=== PATIENT | female | born 1960 | race Caucasian/White ===

== ENCOUNTER 2024-12-13 12:10 | Emergency (ER) | payer MEDICARE, MEDICAID ==
[~2024-12-13] VITALS: Ht 170.2 cm; Wt 103.2 kg
[~2024-12-13 12:10] MED LIST: AMLO5TAB PO; ATOR40TA PO; BACL10TA2 PO; CALC-1215 PO; CYCL-1 PO; DIVA500T9 PO; FLUO-103 PO; FURO40TA4 PO; GLIM1TAB57 PO; HYDR-3972 PO; INSU100V12 SQ; LEVO125T PO; LORA0.5T PO; LOSA100T58 PO; METF500T PO; MILN50TA PO; ONDA4TAB9 SL; OXYB5TAB21 PO; POTA-188 PO; PRIM250T8 PO
[2024-12-13] MEDS: CefTRIAXone 1000mg IM Kit (w/lidocaine diluent) IM ONE (13:30)
[2024-12-13] MEDS ORDERED: CLIN300C63 PO (13:51)
[2024-12-13 14:03] VITALS: BP 128/80; PULSE 68; RESP 16; TEMP 98.7; O2SAT 98
== END 2024-12-13 14:05 | disposition home or self-care (01) ==
LOC: ER 12:10
DX: L02.811 Cutaneous abscess of head [any part, except face] (principal); Z88.0 Allergy status to penicillin
CPT/HCPCS: 96372; 99283; J0696

== ENCOUNTER 2024-12-15 08:01 | Emergency (ER) | payer MEDICARE, MEDICAID ==
[~2024-12-15] VITALS: Ht 170.2 cm; Wt 104.5 kg
[~2024-12-15 08:01] MED LIST changes: +CLIN300C63 PO
[2024-12-15 08:17] VITALS: TEMP 98
[2024-12-15 08:59] VITALS: BP 142/75; PULSE 70; RESP 14; O2SAT 96
== END 2024-12-15 09:08 | disposition home or self-care (01) ==
LOC: ER 08:02
DX: L72.9 Follicular cyst of the skin and subcutaneous tissue, unspecified (principal); Z88.0 Allergy status to penicillin; Z79.899 Other long term (current) drug therapy
CPT/HCPCS: 99281

== ENCOUNTER 2025-04-22 08:59 | Emergency (ER) | payer MEDICARE, MEDICAID ==
[~2025-04-22] VITALS: Ht 170.2 cm; Wt 111.4 kg
[~2025-04-22 08:59] MED LIST changes: -CLIN300C63 PO
--- NOTE | 2025-04-22 09:40 | RADIOLOGY REPORT ---
CLINICAL INDICATION: KNEE PAIN TECHNIQUE: Left DI KNEE, COMP 4 VW MIN Comparison: DI KNEE, COMP 4 VW MIN on DOS: 02/22/24, DI KNEE, COMP 4 VW MIN on DOS: 02/22/24 FINDINGS/IMPRESSION: : There is no evidence of acute fracture or dislocation. Soft tissues are unremarkable. Left knee arthroplasty.
--- NOTE | 2025-04-22 10:59 | Physician Documentation ---
History of Present Illness ~ Chief Complaint: Knee Pain Stated Complaint: KNEE PAIN Time Seen by MD: 09:32 OK to notify your PCP?: Yes Primary Medical Doctor: Dr forte Source: patient Mode of Arrival: POV Exam Limitations: no limitations HPI 65-year-old female presents with left knee pain after she tripped on a hose and fell down onto her kneecap. She does have a full knee replacement on that side but is worried that she may have fractured something else. She does have a slight bruise to the portion right below the knee and some tenderness to palpation. She has full range motion of this knee. She says it is painful to walk on it and she has been using a cane. She does take naproxen at home for chronic back pain already and she took a tramadol last night as well. Tetanus witin 5 years: Yes (2021) Medication Reconciliation Allergies: Coded Allergies: Penicillins (Verified Allergy, Unknown, RASH, 04/22/25) Scheduled Amlodipine Besylate (Amlodipine Besylate), 2 TABLET PO DAILY, (Reported) Atorvastatin Calcium* (Lipitor*), 1 TABLET PO HS, (Reported) Calcium Carbonate/Vitamin D3 (Calcium + D 600 Mg Tablet), 1 EACH PO DAILY, (Reported) Divalproex Sodium (Divalproex Sodium ER), 3 TABLET PO BID, (Reported) Fluoxetine Hcl (Fluoxetine Hcl), 50 MG PO DAILY, (Reported) Glimepiride* (Amaryl*), 2 MG PO DAILY, (Reported) Insulin Detemir (Levemir), 10 UNIT SQ DAILY, (Reported) Levothyroxine Sodium (Synthroid), 150 MG PO DAILY, (Reported) Losartan Potassium (Losartan Potassium), 1 TABLET PO DAILY, (Reported) Metformin Hcl* (Glucophage*), 1 TABLET PO BID, (Reported) Milnacipran Hcl (Savella), 1 TABLET PO BID, (Reported) Oxybutynin Chloride (Oxybutynin Chloride), 1 TABLET PO BID, (Reported) Primidone (MYSOLINE tablet), 250 MG PO DAILY, (Reported) Scheduled PRN Baclofen (Baclofen), 1 TAB PO TID PRN for muscle spasms, (Reported) Cyclobenzaprine* (Cyclobenzaprine*), 1 TABLET PO Q12H PRN for muscle spasms, (Reported) Furosemide 40 MG (Lasix), 1 TAB PO DAILY PRN for ANKLE SWELLING, (Reported) Hydrocodone Bit/Acetaminophen (Hydrocodon-Acetaminophn 10-325 tablet), 1 EACH PO Q6H PRN for moderate or severe pain, (Reported) Lorazepam* (Ativan*), 1 MG PO TID PRN for for anxiety/agitation, (Reported) Ondansetron* (Zofran Odt*), 2 TABLET SL Q6H PRN for nausea/vomiting, (Reported) Potassium Chloride* (Klor-Con*), 20 MG PO DAILY PRN for TAKEN WITH FUROSEMIDE, (Reported) Review of Systems All Other Systems at this time: Reviewed and Negative Physical Exam Vital Signs: RN Vital Signs have been reviewed: Yes, Temperature: 98.0, Source: Temporal, Heart Rate: 76, Respiratory Rate: 18, BP: 140/85, Pulse Oximetry: 99, Weight: 111.360 Oxygen Flow Rate: 0 Pulse Oximetry Reflects: adequate oxygenation Physical Exam General: Alert, no distress. HEENT: No injection, moist mucous membranes. Neck: Full range of motion. Respiratory: No respiratory distress, equal chest rise and fall. Chest: No accessory muscle use. Cardiovascular: Regular rate and rhythm. Gastrointestinal: Nondistended. Extremities: Normal range of motion, no deformity of left knee. Small bruise to distal portion of left knee, slight tenderness to palpation of bruise. Neurologic: Oriented x4. Psychiatric: Normal mood and affect. Skin: Normal color, warm and dry. Progress Results/Orders Reviewed/noted all lab results: Yes Results/Orders Vital Signs 04/22/25 09:09 Temp 98.0 Pulse 76 Resp 18 B/P (MAP) 140/85 Pulse Ox 99 O2 Flow Rate 0 EKG/XRAY/CT/US/VASC/MRI Bone/Soft Tissue X-Ray (Ext.) : Additional Comment Left knee X-ray as interpreted by me; no joint effusion, no acute fracture, no soft tissue swelling, no dislocation, or foreign body. Left knee arthroplasty. Medical Decision Making Additional info obtained from: old records Findings 65-year-old female presents with left knee pain after falling on it. Her x-ray is negative for an acute fracture. She does have full range motion of this knee in a little tenderness to palpation of a small bruise [id number]. She is already taking naproxen and she has tramadol at home. I did prescribe some diclofenac gel that which she can put directly to the site 3 times a day. She states she is unable to use crutches she would be unstable on her feet so a knee immobilizer is not ideal. We applied Fabrice wrap to the knee to help provide some compression as well as some stability and she can use her cane to walk at home. We discussed that she may need further imaging if this continues to be a problem as the X ray does not show the tendons and ligaments the hold the knee in place. I gave her return instructions as well as follow up instructions. Knee Diff Dx:Considerations: Include: Fracture-femur, Fracture-fibula, Fracture -patella, Fracture-tibia, Gout, Laceration, Neurovascular injury, Rheumatoid arthritis, Sprain Departure Disposition: 01 HOME / SELF CARE / HOMELESS Impression: Primary Impression: Knee pain Condition: Stable Discharge Instructions: Acute Knee Pain, Adult Additional Instructions: Take your naproxen at home. Keep knee elevated. You can use ice packs for 20 m inutes on 20 minutes off for the 1st 48 hours after injury then alternate ice and heat. We have applied an Fabrice wrap to help provide a little extra support. Follow up with the primary care provider within the next week and return back here for any new or worsening symptoms. Referrals: NO PRIMARY CARE PROVIDER (PCP) Prescriptions Diclofenac Sodium (Voltaren Arthritis Pain) 1 % Gel..gram. 1 APPLIC TOP TID for 10 Days, #1 EACH Prov: DAVID MORILLO 04/22/25 Education Educated: Patient Educated regarding: diagnosis, treatment, prognosis, need for follow up Additional Comment Medical Screen Exam This patient recieved a medical screening examination. After reviewing the individual's medical complaints with presenting symptoms and performing an appr opriate physical examination, it was determined that no immediate life- threatening emergency medical condition is present. This individual is also not a women having contractions. Signature Scribe Signature: . Attestation: Scribed for David Morillo by David Rogers NP . 04/22/25 11:05 Parts of this note were created using [employer] voice recognition software program. While efforts were made to correct any mistakes made by this voice recognition software program, nonsensical phrases may remain in this note. In addition, there may be errors and syntax, grammar, content and spelling. DAVID MORILLO [facility] Apr 22, 2025 10:59
[2025-04-22] MEDS ORDERED: DICL20GE TOP (11:03)
[2025-04-22 11:12] VITALS: BP 147/74; PULSE 78; RESP 16; TEMP 98; O2SAT 99
== END 2025-04-22 11:13 | disposition home or self-care (01) ==
LOC: ER 09:01
DX: M25.562 Pain in left knee (principal); Z88.0 Allergy status to penicillin; Z79.899 Other long term (current) drug therapy; Z79.4 Long term (current) use of insulin
CPT/HCPCS: 73564; 99284; A6449

== ENCOUNTER 2025-05-15 14:33 | Outpatient (CLI) | payer MEDICARE, MEDICAID ==
[~2025-05-15 14:33] MED LIST changes: +DICL20GE TOP
--- NOTE | 2025-05-15 15:26 | RADIOLOGY REPORT ---
EXAM: DI KNEE 3 VWS CLINICAL INDICATION: RIGHT KNEE PAIN TECHNIQUE: DI KNEE 3 VWS Comparison: DI KNEE, COMP 4 VW MIN on DOS: 04/22/25, DI KNEE, COMP 4 VW MIN on DOS: 02/22/24, DI KNEE, CO MP 4 VW MIN on DOS: 02/22/24 FINDINGS/IMPRESSION: There is no evidence of acute fracture or dislocation. Moderate right knee osteoarthritis The alignment is anatomical. There is no radiopaque foreign body.
== END 2025-05-15 23:59 | disposition home or self-care (01) ==
LOC: RAD 14:33
PROVIDERS: ATTEND Family Medicine
DX: M25.561 Pain in right knee (principal)
CPT/HCPCS: 73562

== ENCOUNTER 2025-08-31 12:06 | Emergency (ER) | payer MEDICARE, MEDICAID ==
[~2025-08-31] VITALS: Ht 170.2 cm; Wt 115.3 kg
[2025-08-31 12:18] VITALS: BP 158/88; PULSE 70; TEMP 97.4; O2SAT 96
--- NOTE | 2025-08-31 13:02 | RADIOLOGY REPORT ---
INDICATION: Fall, pain TECHNIQUE: 3 views of the lumbar spine were obtained. COMPARISON: None FINDINGS: There are no acute fractures or subluxations. Multilevel degenerative changes of the spine. IMPRESSION: No acute fracture or subluxation.
--- NOTE | 2025-08-31 14:50 | Physician Documentation ---
History of Present Illness ~ Chief Complaint: Back Pain Stated Complaint: BACK PAIN Time Seen by MD: 13:21 Primary Medical Doctor: Dr jann ZAYAS Patient is a very pleasant 65-year-old female that presents to the emergency department for evaluation of low back pain sustained approximately 10 days ago after she suffered a mechanical ground level fall. Patient reports that she follow up with the primary care provider they told her to return to the office for re-evaluation in 10 days if her pain was persisting. Patient reports that her pain has been progressively worse and that it is radiating down her left buttock at this time. Patient reports he has a history of sciatica and lumbosacral strain but that this feels slightly worse than her previous episo kane. Patient denies any incontinence of bowel or bladder any perineal numbness any numbness or tingling in her lower extremities or numbness and tingling in her upper extremities. Patient reports that she took Tylenol and ibuprofen this morning but has not taken anything since that time. Patient denies any other symptoms at this time. Medication Reconciliation Allergies: Coded Allergies: Penicillins (Verified Allergy, Unknown, RASH, 08/31/25) Scheduled Amlodipine Besylate (Amlodipine Besylate), 2 TABLET PO DAILY, (Reported) Atorvastatin Calcium* (Lipitor*), 1 TABLET PO HS, (Reported) Calcium Carbonate/Vitamin D3 (Calcium + D 600 Mg Tablet), 1 EACH PO DAILY, (Reported) Diclofenac Sodium (Voltaren Arthritis Pain), 1 APPLIC TOP TID Divalproex Sodium (Divalproex Sodium ER), 3 TABLET PO BID, (Reported) Fluoxetine Hcl (Fluoxetine Hcl), 50 MG PO DAILY, (Reported) Glimepiride* (Amaryl*), 2 MG PO DAILY, (Reported) Insulin Detemir (Levemir), 10 UNIT SQ DAILY, (Reported) Levothyroxine Sodium (Synthroid), 150 MG PO DAILY, (Reported) Losartan Potassium (Losartan Potassium), 1 TABLET PO DAILY, (Reported) Metformin Hcl* (Glucophage*), 1 TABLET PO BID, (Reported) Milnacipran Hcl (Savella), 1 TABLET PO BID, (Reported) Oxybutynin Chloride (Oxybutynin Chloride), 1 TABLET PO BID, (Reported) Primidone (MYSOLINE tablet), 250 MG PO DAILY, (Reported) Scheduled PRN Baclofen (Baclofen), 1 TAB PO TID PRN for muscle spasms, (Reported) Cyclobenzaprine* (Cyclobenzaprine*), 1 TABLET PO Q12H PRN for muscle spasms, (Reported) Furosemide 40 MG (Lasix), 1 TAB PO DAILY PRN for ANKLE SWELLING, (Reported) Hydrocodone Bit/Acetaminophen (Hydrocodon-Acetaminophn 10-325 tablet), 1 EACH PO Q6H PRN for moderate or severe pain, (Reported) Lorazepam* (Ativan*), 1 MG PO TID PRN for for anxiety/agitation, (Reported) Ondansetron* (Zofran Odt*), 2 TABLET SL Q6H PRN for nausea/vomiting, (Reported) Potassium Chloride* (Klor-Con*), 20 MG PO DAILY PRN for TAKEN WITH FUROSEMIDE, (Reported) Review of Systems ROS As stated above in the HPI, otherwise all systems are reviewed and negative. Physical Exam Physical Exam Vital Signs: Temperature: 97.4, Source: Temporal, Heart Rate: 70, Respiratory Rate: 16, BP: 158/88, Pulse Oximetry: 96, Weight: 115.300 Oxygen Flow Rate: 0 Physical Exam VITALS: Reviewed and as above. GENERAL: Alert, no apparent distress. HEENT: Normocephalic, atraumatic, PERRL, EOMI, dry mucosa, no erythema RESPIRATORY: Lungs clear, normal breath sounds, no respiratory distress. CHEST: No accessory muscle use, no retractions CV: Regular rate, rhythm, no edema, no murmur, No: JVD GI: Soft, non-tender, bowels sounds present, no rebound, guarding, or rigidity BACK: No CVA tenderness, or swelling MUSCULOSKELETAL No deformities, no edema, reduced range of motion in the lumbosacral region with examination, tenderness with palpation to the lower back bilaterally, positive straight leg raise on the left side during examination. SKIN: Warm and dry, no rash NEURO: Oriented x4, No motor or sensory deficit PSYCH: Normal mood and affect, no agitation Progress Results/Orders Results/Orders Vital Signs 08/31/25 08/31/25 12:18 15:13 Temp 97.4 Pulse 70 Resp 16 16 B/P (MAP) 158/88 Pulse Ox 96 O2 Flow Rate 0 Medical Decision Making Additional information obtaine: other Findings MEDICAL DECISION MAKING Number of Diagnoses/Management Options: Moderate complexity. The patient presents with subacute low back pain with left-sided radiculopathy (10 days duration) following mechanical ground-level fall. Differential diagnosis includes lumbosacral radiculopathy (sciatica), lumbar strain, and herniated intervertebral disk. Red flag symptoms were systematically evaluated and are absent: no bowel or bladder incontinence, no saddle anesthesia, no progressive motor weakness, no fever, and no constitutional symptoms. The absence of these red flags makes serious underlying pathology (cauda equina syndrome, malignancy, infection, or fracture) unlikely and supports conservative outpatient management. Amount and Complexity of Data: Limited. No imaging was obtained during this visit, which is appropriate given the subacute timeframe (10 days) and absence of red flags. The [employer] guidelines recommend against routine imaging for acute or subacute low back pain in the absence of red flag findings. Physical examination findings were consistent with radiculopathy without severe neurologic deficits. The patient's prior history of sciatica and lumbosacral strain provides context, though she reports this episode is slightly worse than previous ones. Risk of Complications/Morbidity/Mortality: Low to moderate. The patient has a favorable prognosis as most patients with acute or subacute low back pain, even with sciatica, improve over time regardless of treatment. Sciatica resolves without treatment in the majority of cases. However, given symptom progression over 10 days and radiation to the left buttock, there is risk for development of chronic pain if not managed appropriately. The patient has already attempted acetaminophen and ibuprofen with inadequate relief. Treatment Plan and Clinical Reasoning: The patient was counseled on the generally favorable prognosis of low back pain with radicular symptoms and the high likelihood of substantial improvement within the first month. She was advised to remain active as tolerated and avoid prolonged bed rest, as activity restriction does not improve outcomes. For pharmacologic management, the [employer] recommends nonsteroidal anti-inflammatory drugs (NSAIDs) or skeletal muscle relaxants as first-line therapy for acute and subacute low back pain. Given the patient's age (65 years) and the need for short-term pain control, she was prescribed: Ketorolac 10 mg orally every 4-6 hours as needed (maximum 40 mg/day for patients ?65 years, not to exceed 5 days total duration) Cyclobenzaprine 5 mg orally at bedtime as needed for muscle spasm The patient was counseled on gastrointestinal and renal risks associated with NSAIDs and advised to take the lowest effective dose for the shortest duration necessary. She was instructed to discontinue ketorolac after 5 days maximum and transition to [id number] ibuprofen or naproxen if needed. For nonpharmacologic management, the patient was advised to use superficial heat therapy (heating pad or warm compresses), which has moderate-quality evidence for improving pain and function in acute and subacute low back pain. She was also provided information about the potential benefits of physical therapy, spinal manipulation, or acupuncture if symptoms persist beyond 4-6 weeks. Follow-up Plan: The patient was instructed to follow up with her primary care provider in 2-3 weeks for reassessment. She was given strict return precautions to return immediately or call 911 if she develops any red flag symptoms including: new bowel or bladder incontinence, saddle anesthesia, progressive leg weakness, fever, or severe uncontrolled pain. If pain persists beyond 4-6 weeks despite conservative therapy, she should be considered for imaging (MRI) and possible referral to physical therapy or curriculum specialist. Conservative therapy for 6 weeks is appropriate for most patients in the absence of severe neurologic deficits. The patient verbalized understanding of the diagnosis, treatment plan, return precautions, and follow-up instructions. All questions were answered to her satisfaction. Differential Dx:Considerations: Other Departure Disposition: 01 HOME / SELF CARE / HOMELESS Impression: Primary Impression: Back problem Additional Impressions: Strain of thoracic region Sciatica Chronic back pain Condition: Stable Discharge Instructions: Sciatica, Lumbosacral Strain, Acute Back Pain, Adult, Back Pain in , Chronic Pain, Adult Additional Instructions: Your Diagnosis You came to the emergency department with low back pain that started after you fell 10 days ago. The pain has been getting worse and is now spreading down your left buttock. This is called sciatica - when a nerve in your lower back becomes irritated and causes pain that travels down your leg or buttock. The good news is that most people with sciatica get better over time, even without surgery. Your pain should start to improve over the next few weeks. Your Medications Take these medications exactly as prescribed: Ketorolac 10 mg: Take 1 pill by mouth every 4-6 hours as needed for pain Do NOT take more than 4 pills (40 mg) in one day Do NOT take this medication for more than 5 days total Take with food to protect your stomach Stop taking this after 5 days, even if you still have pills left Cyclobenzaprine 5 mg: Take 1 pill by mouth at bedtime as needed for muscle spasm This medication may make you drowsy - do not drive or operate machinery after taking it Only take at bedtime Acetaminophen (Tylenol): You may continue taking [id number] Tylenol as directed on the bottle for additional pain relief Do NOT take more than 3,000 mg in one day Ibuprofen (Advil or Motrin): After you finish the ketorolac (after 5 days), you may take [id number] ibuprofen as directed on the bottle if needed Take with food to protect your stomach What You Should Do at Home Stay active: Do not stay in bed all day. Light activity and walking are good for your back. Move around as much as you can tolerate. Use heat: Apply a heating pad or warm compress to your lower back for 15-20 minutes at a time, several times per day. This can help reduce pain and muscle spasm. Watch your weight: Weigh yourself daily. If you gain more than 3 pounds in one day or 5 pounds in one week, call your doctor. Warning Signs - When to Get Help Right Away Call 911 or return to the emergency department immediately if you develop any of these symptoms: Loss of control of your bowel or bladder (cannot control when you urinate or have a bowel movement) Numbness in your groin, buttocks, or inner thighs (the area that would touch a bicycle seat) New weakness in your legs that makes it hard to walk or stand Severe pain that does not improve with medication Fever over 100.4F New numbness or tingling in your arms or legs Follow-Up Care If your pain is not better in 4-6 weeks, your doctor may recommend physical therapy or additional testing Important Reminders Most people with sciatica improve within a few weeks to months Staying active is better for your back than bed rest Watch for the warning signs listed above and seek help immediately if they occur Keep your follow-up appointment with your primary care doctor You stated that you understand these instructions and had all of your questions answered before leaving the hospital today. Referrals: NO PRIMARY CARE PROVIDER (PCP) Prescriptions Cyclobenzaprine HCl (Cyclobenzaprine HCl) 10 Mg Tablet 1 TAB PO Q8H for muscle spasms for 10 Days, #30 TAB Prov: SAMPSON PEÑA NP 09/02/25 Ketorolac Tromethamine (Ketorolac Tromethamine) 10 Mg Tablet 1 TAB PO Q8H for pain for 3 Days, #9 TAB 0 Refills Prov: SAMPSON PEÑA NP 09/02/25 Education Educated: Patient Educated regarding: diagnosis, treatment, need for follow up Signature Scribe Signature: A Attestation: Scribed for Sherman Stein by YENNY Paiz . 08/31/25 14:54 SHERMAN STEIN Aug 31, 2025 14:50 SAMPSON PEÑA NP Sep 02, 2025 11:31
[2025-08-31 15:13] VITALS: RESP 16
[2025-08-31] MEDS: ketorolac trometh 15mg/ml vial 15 MG/ML ML IM ONE (15:13)
[2025-09-02] MEDS ORDERED: CYCL-394 PO (11:30)
[2025-09-02] MEDS ORDERED: KETO10TA2 PO (11:30)
== END 2025-08-31 15:20 | disposition home or self-care (01) ==
LOC: ER 12:06
DX: S29.012A Strain of muscle and tendon of back wall of thorax, initial encounter (principal); Z88.0 Allergy status to penicillin; Z88.8 Allergy status to other drugs, medicaments and biological substances; W18.30XA Fall on same level, unspecified, initial encounter; X58.XXXA Exposure to other specified factors, initial encounter; Y93.89 Activity, other specified; Y92.89 Other specified places as the place of occurrence of the external cause; Y99.8 Other external cause status
CPT/HCPCS: 72100; 96372; 99284; J1885; J2919